=== PATIENT | female | born 1935 | race African-American/Black ===

== ENCOUNTER 2020-03-22 21:01 | Inpatient (IN) ==
[2020-03-22] MEDS ORDERED: SODIUM CHLORIDE 0.9% 1,000 ML IV STA (21:21)
[2020-03-22] MEDS: dilTIAZem Drip 125 MG/125 ML PREMIX IV SCH (21:43)
[2020-03-22 22:01] LABS: Basophils % 0.4 % (0.0-0.8); Eosinophils # 0.1 10*3/uL (0.0-0.87); Eosinophils % 1.2 % (0.00-10.9); Hematocrit 20.3 VOL% (35.7-47.0); Immature Granulocytes % 0.5 %; Immature Granulocytes Absolute 0.03 #; Lymphocytes # 0.7 10*3/uL (1.4-4.0); Lymphocytes % 12.1 % (21.3-54.2); Mean Corpuscular Volume 98.1 FL (87-102); Mean Platelet Volume 11.1 FL (9.6-12.0); Monocytes % 8.2 % (1.7-12.7); Neutrophils % 77.6 % (38.7-73.9); Platelet Count 110 T/CUMM (130-400); Red Blood Count 2.07 MC/CUMM (3.8-5.5); Red Cell Distribution Width 15.4 % (9.3-17.3); White Blood Count 5.6 T/CUMM (4-12)
[2020-03-22 22:12] LABS: Hemoglobin 6.3 GM/DL (12.0-16.0)
[2020-03-22] MEDS ORDERED: SODIUM CHLORIDE 0.9% 1,000 ML IV PRN (22:23)
[2020-03-23 00:18] LABS: Bilirubin,Total 0.4 MG/DL (0.2-1.0); Calcium 9.1 MG/DL (8.5-10.1)
[2020-03-23 00:19] LABS: Albumin 3.1 G/DL (3.4-5.0); Osmolality,Calculated 288.1 MOS/KG (273-304)
[2020-03-23 00:20] LABS: Thyroid Stimulating Hormone 1.71 uIU/ml (0.358-3.74)
[2020-03-23] MEDS ORDERED: ACETAMINOPHEN 325 MG TABLET PO PRN (01:44)
[2020-03-23] MEDS ORDERED: ALUMINUM/MAGNES/SIMETH MAX STR 30 ML UDCUP PO PRN (01:44)
[2020-03-23] MEDS ORDERED: NICOTINE 21 MG/24 HR PATCH TRANSDERM PRN (01:44)
[2020-03-23] MEDS ORDERED: diphenhydrAMINE CAP 25 MG CAPSULE PO PRN (01:44)
[2020-03-23] MEDS ORDERED: DEXTROSE 50% 25 GM/50 ML VIAL IV PRN (01:44)
[2020-03-23] MEDS ORDERED: GLUCAGON 1 MG VIAL IM PRN (01:44)
[2020-03-23] MEDS ORDERED: ONDANSETRON 4 MG/2 ML VIAL IV PRN (01:44)
[2020-03-23] MEDS ORDERED: guaiFENesin/DM ER 600-30 MG TABLET PO PRN (01:44)
[2020-03-23 03:10] LABS: Bacteria,Urine Occasional /HPF (Few); Bilirubin,Urine Negative (Negative); Blood, Urine Negative (Negative); Glucose,Urine (UA) Negative (Negative); Ketones,Urine Negative (Negative); Mucus,Urine Occasional /LPF (Occasional); Nitrite,Urine Negative (Negative); Protein,Urine Negative; RBC,Urine 1 /HPF (0-4); Squamous Epithelial Cell,Urine Occasional /HPF (0-10); Urine Appearance Slightly Hazy (Clear); Urine Color Yellow (Yellow); Urine Specific Gravity 1.013 (1.001-1.035); Urine Urobilinogen < 2.0 EU/DL (0.2-1.0); WBC,Urine 1 /HPF (0-6)
[2020-03-23 03:36] LABS: Risk Ratio 1.94; VLDL CHOLESTEROL 19.6 MG/DL
[2020-03-23] MEDS: SODIUM CHLORIDE 0.9% 1,000 ML IV SCH (04:29)
[2020-03-23] MEDS: MORPHINE 4 MG/1 ML VIAL IV PRN ×2 (04:31→20:01)
[2020-03-23 06:58] LABS: Basophils % 0.4 % (0.0-0.8); Eosinophils # 0.2 10*3/uL (0.0-0.87); Eosinophils % 1.8 % (0.00-10.9); Hematocrit 37.6 VOL% (35.7-47.0); Immature Granulocytes % 0.4 %; Immature Granulocytes Absolute 0.03 #; Lymphocytes # 1.3 10*3/uL (1.4-4.0); Lymphocytes % 15.6 % (21.3-54.2); Mean Corpuscular HGB Conc 31.9 GM/DL (32-36); Mean Corpuscular Volume 93.8 FL (87-102); Mean Platelet Volume 11.6 FL (9.6-12.0); Monocytes % 8.3 % (1.7-12.7); Neutrophils % 73.5 % (38.7-73.9); Red Cell Distribution Width 15.1 % (9.3-17.3)
[2020-03-23 07:11] LABS: White Blood Count 8.4 T/CUMM (4-12)
[2020-03-23 07:12] LABS: Red Blood Count 4.01 MC/CUMM (3.8-5.5)
[2020-03-23 07:13] LABS: Platelet Count 223 T/CUMM (130-400)
[2020-03-23 07:45] LABS: Folate 8.8 NG/ML (5.4-24.0); Vitamin B12 319 PG/ML (211-911)
[2020-03-23 08:06] LABS: Sedimentation Rate-Westergren 55 MM/HR (0-30)
[2020-03-23] MEDS: INSULIN REGULAR 100 UNIT/ML SUBCUT SCH ×4 (08:37→20:28)
[2020-03-23 08:55] LABS: Barbiturates Screen,Urine Negative (Negative); Benzodiazepines Screen,Urine Negative (Negative); Cannabinoid Screen,Urine Negative (Negative); Opiate Screen,Urine Negative (Negative); Phencyclidine Screen,Urine Negative (Negative)
[2020-03-23] MEDS ORDERED: INFLUENZA VIRUS VACCINE 0.5 ML SYRINGE IM ONE (09:00)
[2020-03-23 09:16] LABS: Basophils % 0.3 % (0.0-0.8); Eosinophils # 0.3 10*3/uL (0.0-0.87); Hematocrit 40.8 VOL% (35.7-47.0); Hemoglobin 13.1 GM/DL (12.0-16.0); Immature Granulocytes % 0.3 %; Immature Granulocytes Absolute 0.03 #; Lymphocytes # 1.3 10*3/uL (1.4-4.0); Lymphocytes % 15.4 % (21.3-54.2); Mean Corpuscular HGB Conc 32.1 GM/DL (32-36); Mean Corpuscular Volume 94.4 FL (87-102); Mean Platelet Volume 11.1 FL (9.6-12.0); Monocytes % 7.8 % (1.7-12.7); Neutrophils % 73.2 % (38.7-73.9); Platelet Count 212 T/CUMM (130-400); Red Blood Count 4.32 MC/CUMM (3.8-5.5); Red Cell Distribution Width 15.1 % (9.3-17.3); White Blood Count 8.7 T/CUMM (4-12)
[2020-03-23 09:49] LABS: % Iron Saturation 10.2 % (18-50)
[2020-03-23 13:00] LABS: Calcium 9.4 MG/DL (8.5-10.1); Osmolality,Calculated 286.3 MOS/KG (273-304)
[2020-03-23] MEDS: POTASSIUM CHLORIDE 10 MEQ TABLET PO SCH ×3 (13:41→20:19)
[2020-03-23] MEDS: DILTIAZEM CD 120 MG CAPSULE PO SCH ×2 (13:41→20:19)
[2020-03-23] MEDS: metFORMIN 500 MG TABLET PO SCH ×2 (16:25→20:19)
[2020-03-23] MEDS: dilTIAZem Drip 125 MG/125 ML PREMIX IV SCH (16:31)
[2020-03-23] MEDS ORDERED: DILTIAZEM CD 120 MG CAPSULE PO SCH (21:00)
[2020-03-24] MEDS: MORPHINE 4 MG/1 ML VIAL IV PRN ×2 (00:39→04:24)
[2020-03-24] MEDS: SODIUM CHLORIDE 0.9% 1,000 ML IV SCH ×2 (03:49→17:53)
[2020-03-24 06:04] LABS: Basophils % 0.4 % (0.0-0.8); Eosinophils # 0.4 10*3/uL (0.0-0.87); Eosinophils % 5.6 % (0.00-10.9); Hematocrit 37.5 VOL% (35.7-47.0); Hemoglobin 11.9 GM/DL (12.0-16.0); Immature Granulocytes % 0.5 %; Immature Granulocytes Absolute 0.04 #; Lymphocytes # 1.7 10*3/uL (1.4-4.0); Mean Corpuscular HGB Conc 31.7 GM/DL (32-36); Mean Corpuscular Volume 95.9 FL (87-102); Mean Platelet Volume 11.6 FL (9.6-12.0); Monocytes % 9.5 % (1.7-12.7); Platelet Count 212 T/CUMM (130-400); Red Blood Count 3.91 MC/CUMM (3.8-5.5); Red Cell Distribution Width 15.3 % (9.3-17.3); White Blood Count 7.8 T/CUMM (4-12)
[2020-03-24 06:36] LABS: Osmolality,Calculated 282.3 MOS/KG (273-304)
[2020-03-24] MEDS ORDERED: MAGNESIUM SULF RIDER 2 GM in PREMIX 1 EACH IV PRN (08:20)
[2020-03-24] MEDS ORDERED: MAGNESIUM SULF RIDER 4 GM in PREMIX 1 EACH IV PRN (08:20)
[2020-03-24] MEDS ORDERED: ASPIRIN CHEW 81 MG TABLET PO SCH (09:00)
[2020-03-24] MEDS ORDERED: LOSARTAN 50 MG TABLET PO SCH (09:00)
[2020-03-24] MEDS ORDERED: amLODIPine 10 MG TABLET PO SCH (09:00)
[2020-03-24] MEDS ORDERED: CHOLECALCIFEROL 1,000 UNIT TABLET PO SCH (09:00)
[2020-03-24] MEDS ORDERED: FUROSEMIDE 40 MG TABLET PO SCH (09:00)
[2020-03-24] MEDS ORDERED: ATORVASTATIN 10 MG TABLET PO SCH (09:00)
[2020-03-24] MEDS: INSULIN REGULAR 100 UNIT/ML SUBCUT SCH ×3 (10:01→17:59)
[2020-03-24] MEDS: DILTIAZEM CD 120 MG CAPSULE PO SCH (10:01)
[2020-03-24] MEDS: POTASSIUM CHLORIDE 10 MEQ TABLET PO SCH ×3 (10:01→17:59)
[2020-03-24] MEDS: metFORMIN 500 MG TABLET PO SCH ×2 (10:02→17:00)
[2020-03-24] MEDS ORDERED: MAGNESIUM SULF RIDER 4 GM in PREMIX 1 EACH IV ONE (10:26)
[2020-03-24 12:44] VITALS: BP 161/74
[2020-03-24] MEDS ORDERED: DILTIAZEM CD 180 MG CAPSULE PO SCH (12:46)
[2020-03-24] MEDS ORDERED: FERROUS SULFATE 325 MG TABLET PO SCH (13:00)
[2020-03-24] MEDS ORDERED: APIXABAN 2.5 MG TABLET PO SCH (14:30)
[2020-03-25 10:14] LABS: Hemoglobin A1 (Alkaline) 97.2 % (96.5-98.5); Hemoglobin A2 (Alkaline) 2.8 % (1.5-3.5)
== END 2020-03-24 17:47 | disposition home health service (06) | DRG 309 ==
LOC: EDUNIT# → EDBD → N.ED 21:01 → N.EDINP 03-23 01:44 → SUATTDRO 03-23 01:44 → N.EDINP 03-23 02:45 → N.TELEN 03-23 03:09
PROVIDERS: ADMIT Emergency Medicine; ATTEND Internal Medicine

== ENCOUNTER 2020-04-06 11:08 | Inpatient (IN) ==
[2020-04-06] MEDS ORDERED: cefTRIAXone 1,000 MG in SODIUM CHLORIDE 0.9% 100 ML IV STA (11:30)
[2020-04-06 11:55] LABS: Basophils % 0.2 % (0.0-0.8); Hematocrit 35.7 VOL% (35.7-47.0); Hemoglobin 11.7 GM/DL (12.0-16.0); Immature Granulocytes % 0.6 %; Immature Granulocytes Absolute 0.05 #; Lymphocytes # 0.7 10*3/uL (1.4-4.0); Mean Corpuscular HGB Conc 32.8 GM/DL (32-36); Mean Corpuscular Volume 90.4 FL (87-102); Mean Platelet Volume 10.7 FL (9.6-12.0); Neutrophils % 87.2 % (38.7-73.9); Platelet Count 252 T/CUMM (130-400); Red Blood Count 3.95 MC/CUMM (3.8-5.5); Red Cell Distribution Width 14.9 % (9.3-17.3); White Blood Count 8.2 T/CUMM (4-12)
[2020-04-06 12:18] LABS: Hypochromasia 1+; Lymphocytes 3 % (20-55); Platelet Estimate Adequate; Segmented Neutrophils 95 % (50-85); Total Cells Counted 100
[2020-04-06 12:19] LABS: Microcytosis 1+
[2020-04-06 12:31] LABS: Albumin 2.2 G/DL (3.4-5.0); Bilirubin,Total 0.6 MG/DL (0.2-1.0); Calcium 8.4 MG/DL (8.5-10.1); Osmolality,Calculated 270.1 MOS/KG (273-304); Total Protein 6.3 G/DL (6.4-8.3)
[2020-04-06 12:40] LABS: Bacteria,Urine Occasional /HPF (Few); Bilirubin,Urine Negative (Negative); Blood, Urine Negative (Negative); Glucose,Urine (UA) Negative (Negative); Ketones,Urine Negative (Negative); Mucus,Urine Few /LPF (Occasional); Nitrite,Urine Negative (Negative); Protein,Urine 100 MG/DL; RBC,Urine 3 /HPF (0-4); Squamous Epithelial Cell,Urine Occasional /HPF (0-10); Urine Appearance Slightly Hazy (Clear); Urine Color Yellow (Yellow); Urine Specific Gravity 1.019 (1.001-1.035); Urine Urobilinogen < 2.0 EU/DL (0.2-1.0)
[2020-04-06] MEDS ORDERED: ONDANSETRON 4 MG/2 ML VIAL IV PRN (14:26)
[2020-04-06] MEDS ORDERED: GLUCAGON 1 MG VIAL IM PRN (14:26)
[2020-04-06] MEDS ORDERED: DEXTROSE 50% 25 GM/50 ML VIAL IV PRN (14:26)
[2020-04-06] MEDS ORDERED: hydrALAZINE 20 MG/1 ML VIAL IV PRN (14:26)
[2020-04-06] MEDS ORDERED: ACETAMINOPHEN 325 MG TABLET PO PRN (14:42)
[2020-04-06 15:03] LABS: Thyroid Stimulating Hormone 0.712 uIU/ml (0.358-3.74)
[2020-04-06] MEDS: AZITHROMYCIN 250 MG TABLET PO SCH (17:16)
[2020-04-06] MEDS: metFORMIN 500 MG TABLET PO SCH ×2 (17:16→20:34)
[2020-04-06] MEDS: INSULIN LISPRO 100 UNIT/ML SUBCUT SCH ×2 (17:17→20:34)
[2020-04-06] MEDS: DILTIAZEM CD 180 MG CAPSULE PO SCH (20:33)
[2020-04-06] MEDS: APIXABAN 2.5 MG TABLET PO SCH (20:33)
[2020-04-06] MEDS: ASCORBIC ACID 500 MG TABLET PO SCH (20:33)
[2020-04-06] MEDS: DEXAMETHASONE 4 MG TABLET PO SCH (20:34)
[2020-04-07 05:47] LABS: Basophils % 0.1 % (0.0-0.8); Hematocrit 35.2 VOL% (35.7-47.0); Hemoglobin 11.4 GM/DL (12.0-16.0); Immature Granulocytes % 0.6 %; Immature Granulocytes Absolute 0.05 #; Lymphocytes # 0.3 10*3/uL (1.4-4.0); Lymphocytes % 3.8 % (21.3-54.2); Mean Corpuscular HGB Conc 32.4 GM/DL (32-36); Mean Corpuscular Volume 91.2 FL (87-102); Mean Platelet Volume 11.9 FL (9.6-12.0); Monocytes % 1.4 % (1.7-12.7); Neutrophils % 94.1 % (38.7-73.9); Platelet Count 254 T/CUMM (130-400); Red Blood Count 3.86 MC/CUMM (3.8-5.5); White Blood Count 8.5 T/CUMM (4-12)
[2020-04-07 06:03] LABS: Calcium 8.3 MG/DL (8.5-10.1); Osmolality,Calculated 282.5 MOS/KG (273-304)
[2020-04-07 06:06] LABS: Ferritin 219.4 ng/ml (8-252)
[2020-04-07 06:26] LABS: Lymphocytes 1 % (20-55); Platelet Estimate Adequate; Segmented Neutrophils 98 % (50-85); Total Cells Counted 100
[2020-04-07 06:27] LABS: Hypochromasia 1+; Microcytosis 1+
[2020-04-07] MEDS ORDERED: MAGNESIUM SULF RIDER 4 GM in PREMIX 1 EACH IV PRN (08:18)
[2020-04-07] MEDS ORDERED: MAGNESIUM SULF RIDER 2 GM in PREMIX 1 EACH IV PRN (08:18)
[2020-04-07] MEDS: ZINC SULFATE 220 MG CAPSULE PO SCH (09:35)
[2020-04-07] MEDS: PANTOPRAZOLE 40 MG TABLET PO SCH (09:35)
[2020-04-07] MEDS: CHOLECALCIFEROL 1,000 UNIT TABLET PO SCH (09:35)
[2020-04-07] MEDS: cefTRIAXone 1,000 MG in SYRINGE 1 EACH IV SCH (09:35)
[2020-04-07] MEDS: INSULIN LISPRO 100 UNIT/ML SUBCUT SCH ×4 (09:35→22:14)
[2020-04-07] MEDS: ASPIRIN EC 81 MG TABLET PO SCH (09:35)
[2020-04-07] MEDS: ATORVASTATIN 10 MG TABLET PO SCH (09:35)
[2020-04-07] MEDS: metFORMIN 500 MG TABLET PO SCH ×3 (09:35→20:32)
[2020-04-07] MEDS: APIXABAN 2.5 MG TABLET PO SCH ×2 (09:35→20:33)
[2020-04-07] MEDS: AZITHROMYCIN 250 MG TABLET PO SCH (09:35)
[2020-04-07] MEDS: DILTIAZEM CD 180 MG CAPSULE PO SCH ×2 (09:35→20:33)
[2020-04-07] MEDS: ASCORBIC ACID 500 MG TABLET PO SCH ×2 (09:35→20:33)
[2020-04-07] MEDS: sitaGLIPtin 100 MG TABLET PO SCH (09:35)
[2020-04-07] MEDS: DEXAMETHASONE 4 MG TABLET PO SCH ×2 (09:35→20:32)
[2020-04-07] MEDS: LOSARTAN 50 MG TABLET PO SCH (10:18)
[2020-04-07] MEDS ORDERED: REMDESIVIR 200 MG in SODIUM CHLORIDE 0.9% 210 ML IV ONE (11:00)
[2020-04-07] MEDS ORDERED: SODIUM CHLORIDE 0.9% 1,000 ML IV PRN (13:28)
[2020-04-08 05:29] LABS: Basophils % 0.1 % (0.0-0.8); Hematocrit 34.4 VOL% (35.7-47.0); Hemoglobin 11.3 GM/DL (12.0-16.0); Immature Granulocytes % 0.6 %; Immature Granulocytes Absolute 0.05 #; Lymphocytes # 0.4 10*3/uL (1.4-4.0); Lymphocytes % 4.2 % (21.3-54.2); Mean Corpuscular HGB Conc 32.8 GM/DL (32-36); Mean Corpuscular Volume 89.6 FL (87-102); Mean Platelet Volume 11.1 FL (9.6-12.0); Monocytes % 2.9 % (1.7-12.7); Neutrophils % 92.2 % (38.7-73.9); Platelet Count 316 T/CUMM (130-400); Red Blood Count 3.84 MC/CUMM (3.8-5.5); Red Cell Distribution Width 14.9 % (9.3-17.3); White Blood Count 9.1 T/CUMM (4-12)
[2020-04-08 05:54] LABS: Calcium 9.1 MG/DL (8.5-10.1)
[2020-04-08 05:57] LABS: Lymphocytes 3 % (20-55); Segmented Neutrophils 96 % (50-85); Total Cells Counted 100
[2020-04-08 05:58] LABS: Hypochromasia 1+; Microcytosis 1+; Ovalocytes Slight; Platelet Estimate Normal
[2020-04-08] MEDS: INSULIN LISPRO 100 UNIT/ML SUBCUT SCH ×4 (08:37→20:53)
[2020-04-08] MEDS: DEXAMETHASONE 4 MG TABLET PO SCH (09:38)
[2020-04-08] MEDS: ATORVASTATIN 10 MG TABLET PO SCH (09:38)
[2020-04-08] MEDS: ASCORBIC ACID 500 MG TABLET PO SCH ×2 (09:38→20:53)
[2020-04-08] MEDS: PANTOPRAZOLE 40 MG TABLET PO SCH (09:38)
[2020-04-08] MEDS: ZINC SULFATE 220 MG CAPSULE PO SCH (09:38)
[2020-04-08] MEDS: CHOLECALCIFEROL 1,000 UNIT TABLET PO SCH (09:38)
[2020-04-08] MEDS: APIXABAN 2.5 MG TABLET PO SCH ×2 (09:38→20:52)
[2020-04-08] MEDS: ASPIRIN EC 81 MG TABLET PO SCH (09:38)
[2020-04-08] MEDS: AZITHROMYCIN 250 MG TABLET PO SCH (09:38)
[2020-04-08] MEDS: cefTRIAXone 1,000 MG in SYRINGE 1 EACH IV SCH (09:38)
[2020-04-08] MEDS: REMDESIVIR 100 MG in SODIUM CHLORIDE 0.9% 230 ML IV SCH (10:06)
[2020-04-08] MEDS: DILTIAZEM CD 180 MG CAPSULE PO SCH ×2 (10:16→20:48)
[2020-04-08] MEDS: LOSARTAN 50 MG TABLET PO SCH (10:16)
[2020-04-08] MEDS: metFORMIN 500 MG TABLET PO SCH (10:16)
[2020-04-08] MEDS: sitaGLIPtin 100 MG TABLET PO SCH (10:17)
[2020-04-09 06:20] LABS: Basophils % 0.3 % (0.0-0.8); Hematocrit 40.2 VOL% (35.7-47.0); Hemoglobin 12.6 GM/DL (12.0-16.0); Immature Granulocytes % 1.3 %; Lymphocytes # 0.5 10*3/uL (1.4-4.0); Mean Corpuscular HGB Conc 31.3 GM/DL (32-36); Mean Corpuscular Volume 91.2 FL (87-102); Monocytes % 4.9 % (1.7-12.7); Neutrophils % 86.5 % (38.7-73.9); Platelet Count 399 T/CUMM (130-400); Red Blood Count 4.41 MC/CUMM (3.8-5.5); Red Cell Distribution Width 15.1 % (9.3-17.3); White Blood Count 7.6 T/CUMM (4-12)
[2020-04-09 06:45] LABS: Calcium 9.7 MG/DL (8.5-10.1); Osmolality,Calculated 278.3 MOS/KG (273-304)
[2020-04-09 06:47] LABS: Eosinophils 1 % (0-10); Lymphocytes 2 % (20-55); Platelet Estimate Normal; Segmented Neutrophils 95 % (50-85); Total Cells Counted 100
[2020-04-09] MEDS: INSULIN LISPRO 100 UNIT/ML SUBCUT SCH ×5 (08:05→20:59)
[2020-04-09] MEDS: REMDESIVIR 100 MG in SODIUM CHLORIDE 0.9% 230 ML IV SCH (09:49)
[2020-04-09] MEDS: DEXAMETHASONE 4 MG/1 ML VIAL IV SCH (09:50)
[2020-04-09] MEDS: PANTOPRAZOLE 40 MG TABLET PO SCH (09:51)
[2020-04-09] MEDS: ZINC SULFATE 220 MG CAPSULE PO SCH (09:51)
[2020-04-09] MEDS: CHOLECALCIFEROL 1,000 UNIT TABLET PO SCH (09:51)
[2020-04-09] MEDS: cefTRIAXone 1,000 MG in SYRINGE 1 EACH IV SCH (09:51)
[2020-04-09] MEDS: ASCORBIC ACID 500 MG TABLET PO SCH ×2 (09:51→20:58)
[2020-04-09] MEDS: ASPIRIN EC 81 MG TABLET PO SCH (09:51)
[2020-04-09] MEDS: AZITHROMYCIN 250 MG TABLET PO SCH (09:51)
[2020-04-09] MEDS: DILTIAZEM CD 180 MG CAPSULE PO SCH ×2 (09:51→20:57)
[2020-04-09] MEDS: APIXABAN 2.5 MG TABLET PO SCH ×2 (09:51→20:57)
[2020-04-09] MEDS: ATORVASTATIN 10 MG TABLET PO SCH (09:51)
[2020-04-10 05:51] LABS: Basophils % 0.3 % (0.0-0.8); Eosinophils % 0.2 % (0.00-10.9); Hematocrit 36.6 VOL% (35.7-47.0); Immature Granulocytes % 2.1 %; Immature Granulocytes Absolute 0.14 #; Lymphocytes # 0.5 10*3/uL (1.4-4.0); Mean Corpuscular HGB Conc 32.8 GM/DL (32-36); Mean Corpuscular Volume 90.4 FL (87-102); Mean Platelet Volume 9.9 FL (9.6-12.0); Monocytes % 5.9 % (1.7-12.7); Neutrophils % 83.5 % (38.7-73.9); Platelet Count 471 T/CUMM (130-400); Red Blood Count 4.05 MC/CUMM (3.8-5.5); Red Cell Distribution Width 14.9 % (9.3-17.3); White Blood Count 6.6 T/CUMM (4-12)
[2020-04-10 06:05] LABS: Calcium 9.2 MG/DL (8.5-10.1); Osmolality,Calculated 282.4 MOS/KG (273-304)
[2020-04-10 06:17] LABS: Burr Cells Slight; Hypochromasia 1+; Lymphocytes 8 % (20-55); Ovalocytes Slight; Platelet Estimate Adequate; Segmented Neutrophils 84 % (50-85); Total Cells Counted 100
[2020-04-10 06:18] LABS: Microcytosis 1+
[2020-04-10] MEDS: INSULIN LISPRO 100 UNIT/ML SUBCUT SCH ×4 (09:32→21:26)
[2020-04-10] MEDS: APIXABAN 2.5 MG TABLET PO SCH ×2 (09:33→21:26)
[2020-04-10] MEDS: DILTIAZEM CD 180 MG CAPSULE PO SCH ×2 (09:33→21:25)
[2020-04-10] MEDS: ATORVASTATIN 10 MG TABLET PO SCH (09:33)
[2020-04-10] MEDS: REMDESIVIR 100 MG in SODIUM CHLORIDE 0.9% 230 ML IV SCH (09:33)
[2020-04-10] MEDS: DEXAMETHASONE 4 MG/1 ML VIAL IV SCH (09:33)
[2020-04-10] MEDS: ASPIRIN EC 81 MG TABLET PO SCH (09:33)
[2020-04-10] MEDS: PANTOPRAZOLE 40 MG TABLET PO SCH (09:33)
[2020-04-10] MEDS: ZINC SULFATE 220 MG CAPSULE PO SCH (09:34)
[2020-04-10] MEDS: AZITHROMYCIN 250 MG TABLET PO SCH (09:34)
[2020-04-10] MEDS: ASCORBIC ACID 500 MG TABLET PO SCH ×2 (09:34→21:26)
[2020-04-10] MEDS: cefTRIAXone 1,000 MG in SYRINGE 1 EACH IV SCH (09:34)
[2020-04-10] MEDS: CHOLECALCIFEROL 1,000 UNIT TABLET PO SCH (09:34)
[2020-04-11 04:03] LABS: Basophils % 0.2 % (0.0-0.8); Hematocrit 34.7 VOL% (35.7-47.0); Hemoglobin 11.4 GM/DL (12.0-16.0); Immature Granulocytes % 3.9 %; Immature Granulocytes Absolute 0.23 #; Lymphocytes # 0.5 10*3/uL (1.4-4.0); Lymphocytes % 8.1 % (21.3-54.2); Mean Corpuscular HGB Conc 32.9 GM/DL (32-36); Mean Corpuscular Volume 90.4 FL (87-102); Mean Platelet Volume 9.9 FL (9.6-12.0); Monocytes % 8.3 % (1.7-12.7); Neutrophils % 79.5 % (38.7-73.9); Platelet Count 471 T/CUMM (130-400); Red Blood Count 3.84 MC/CUMM (3.8-5.5); White Blood Count 5.9 T/CUMM (4-12)
[2020-04-11 04:33] LABS: Calcium 8.8 MG/DL (8.5-10.1)
[2020-04-11] MEDS: PANTOPRAZOLE 40 MG TABLET PO SCH (09:09)
[2020-04-11] MEDS: ASPIRIN EC 81 MG TABLET PO SCH (09:09)
[2020-04-11] MEDS: ATORVASTATIN 10 MG TABLET PO SCH (09:09)
[2020-04-11] MEDS: CHOLECALCIFEROL 1,000 UNIT TABLET PO SCH (09:09)
[2020-04-11] MEDS: DILTIAZEM CD 180 MG CAPSULE PO SCH (09:09)
[2020-04-11] MEDS: APIXABAN 2.5 MG TABLET PO SCH (09:10)
[2020-04-11] MEDS: ASCORBIC ACID 500 MG TABLET PO SCH (09:10)
[2020-04-11] MEDS: ZINC SULFATE 220 MG CAPSULE PO SCH (09:10)
[2020-04-11] MEDS: INSULIN LISPRO 100 UNIT/ML SUBCUT SCH ×2 (09:11→11:47)
[2020-04-11] MEDS: DEXAMETHASONE 4 MG/1 ML VIAL IV SCH (09:11)
[2020-04-11] MEDS: cefTRIAXone 1,000 MG in SYRINGE 1 EACH IV SCH (09:12)
[2020-04-11] MEDS: REMDESIVIR 100 MG in SODIUM CHLORIDE 0.9% 230 ML IV SCH (09:13)
[2020-04-11 11:18] VITALS: BP 123/58
== END 2020-04-11 15:40 | disposition home health service (06) | DRG 177 ==
LOC: EDUNIT# → EDBD → N.ED 11:08 → SUATTDRO 14:24 → N.EDINP 14:24 → N.2E 14:55
PROVIDERS: ADMIT Internal Medicine; ATTEND Internal Medicine